=== PATIENT | male | born 1995 | race Two or more races ===

== ENCOUNTER 2022-12-23 20:24 | Emergency (ER) | payer OTHER ==
[~2022-12-23] VITALS: Ht 177.8 cm; Wt 113.7 kg
[2022-12-23] MEDS ORDERED: FAMOTIDINE (10MG/ML) 2ML VL IV ONE (20:45)
[2022-12-23] MEDS ORDERED: diphenhdrAMINE HCL 50 MG/1 ML VL IV ONE (20:45)
[2022-12-23] MEDS ORDERED: EPINEPHrine HCL 1 MG/1 ML AMP IM ONE (20:45)
[2022-12-23] MEDS ORDERED: DexAMETHasone SOD PHOS 10MG/1ML VIAL INJ IV ONE (20:45)
[2022-12-23 20:51] VITALS: BP 133/84
[2022-12-23] MEDS ORDERED: EPIN0.1516 IJ (22:51)
== END 2022-12-23 23:12 | disposition home or self-care (01) ==
LOC: ER 20:24
DX: T78.1XXA Other adverse food reactions, not elsewhere classified, initial encounter (principal); X58.XXXA Exposure to other specified factors, initial encounter
CPT/HCPCS: 96372; 96374; 96375; 99284; J0171; J1100; J1200; J3490

== ENCOUNTER 2023-04-03 10:20 | Emergency (ER) | payer OTHER ==
[~2023-04-03] VITALS: Ht 177.8 cm; Wt 114.1 kg
[~2023-04-03 10:20] MED LIST: EPIN0.1516 IJ
[2023-04-03 13:22] VITALS: TEMP 97.5; O2SAT 98
[2023-04-03] MEDS ORDERED: KETOROLAC TROMETH 60MG/2ML VIAL IM ONE (13:45)
[2023-04-03] MEDS ORDERED: ACETAMINOPHEN 500 MG TAB PO ONE (13:45)
[2023-04-03] MEDS ORDERED: CYCL-837 PO (13:46)
[2023-04-03] MEDS ORDERED: ACET-1304 PO (13:46)
[2023-04-03 14:28] VITALS: BP 124/91; PULSE 66; RESP 20
== END 2023-04-03 14:29 | disposition home or self-care (01) ==
LOC: ER 10:20
DX: S39.012A Strain of muscle, fascia and tendon of lower back, initial encounter (principal); Z79.1 Long term (current) use of non-steroidal anti-inflammatories (NSAID); Z79.899 Other long term (current) drug therapy; X50.0XXA Overexertion from strenuous movement or load, initial encounter; Y93.89 Activity, other specified; Y92.098 Other place in other non-institutional residence as the place of occurrence of the external cause; Y99.8 Other external cause status
CPT/HCPCS: 96372; 99283; J1885